=== PATIENT | female | born 1990 | race Caucasian/White ===

== ENCOUNTER 2016-08-20 11:25 | Emergency (ER) | payer SELFPAY ==
[2016-08-20 17:10] VITALS: BP 130/79
== END 2016-08-20 17:10 | disposition home or self-care (01) ==
LOC: ED 11:25
DX: S61.512A Laceration without foreign body of left wrist, initial encounter (principal); S66.822A Laceration of other specified muscles, fascia and tendons at wrist and hand level, left hand, initial encounter; J45.909 Unspecified asthma, uncomplicated; W18.30XA Fall on same level, unspecified, initial encounter; Y93.89 Activity, other specified; Y99.8 Other external cause status; Y92.89 Other specified places as the place of occurrence of the external cause
CPT/HCPCS: 90715; J1885; J2001